=== PATIENT | male | born 1990 | race Caucasian/White ===

== ENCOUNTER 2017-02-26 15:05 | Emergency (ER) | payer OTHER ==
[~2017-02-26] VITALS: Ht 177.8 cm; Wt 55.8 kg
[2017-02-26 15:09] VITALS: BP 137/91
== END 2017-02-26 16:50 | disposition home or self-care (01) ==
LOC: ED 15:05
DX: J98.01 Acute bronchospasm (principal); F17.200 Nicotine dependence, unspecified, uncomplicated; F12.20 Cannabis dependence, uncomplicated
CPT/HCPCS: J7512; J7613; J7644

== ENCOUNTER 2018-04-26 10:27 | Emergency (ER) | payer OTHER ==
[~2018-04-26] VITALS: Ht 180.3 cm; Wt 62.6 kg
[2018-04-26 10:37] VITALS: BP 132/71; Ht 180.3 cm; Wt 62.6 kg
== END 2018-04-26 12:10 | disposition home or self-care (01) ==
LOC: ED 10:27
DX: S93.401A Sprain of unspecified ligament of right ankle, initial encounter (principal); W13.2XXA Fall from, out of or through roof, initial encounter; Y93.39 Activity, other involving climbing, rappelling and jumping off; Y92.008 Other place in unspecified non-institutional (private) residence as the place of occurrence of the external cause

== ENCOUNTER 2018-10-05 20:21 | Emergency (ER) | payer OTHER ==
[~2018-10-05] VITALS: Ht 180.3 cm; Wt 79.4 kg
[2018-10-05 20:33] VITALS: BP 156/99; Ht 180.3 cm; Wt 79.4 kg
== END 2018-10-05 22:39 | disposition left against medical advice (07) ==
LOC: ED 20:21
DX: Z53.21 Procedure and treatment not carried out due to patient leaving prior to being seen by health care provider (principal)

== ENCOUNTER 2018-10-27 09:59 | Emergency (ER) | payer OTHER ==
[~2018-10-27] VITALS: Ht 180.3 cm; Wt 65.8 kg
[2018-10-27 10:17] VITALS: BP 120/89; Ht 180.3 cm; Wt 65.8 kg
== END 2018-10-27 12:59 | disposition other institution (70) ==
LOC: ED 09:59
DX: S01.81XA Laceration without foreign body of other part of head, initial encounter (principal); S93.402A Sprain of unspecified ligament of left ankle, initial encounter; S00.212A Abrasion of left eyelid and periocular area, initial encounter; X58.XXXA Exposure to other specified factors, initial encounter; Y93.89 Activity, other specified; Y92.89 Other specified places as the place of occurrence of the external cause; Y99.8 Other external cause status
CPT/HCPCS: 90715

== ENCOUNTER 2018-10-27 09:59 | Emergency (ER) | payer OTHER | END 2018-10-27 12:59 | disposition other institution (70) | LOC: ED 09:59 | DX: Z02.89 Encounter for other administrative examinations (principal) ==

== ENCOUNTER 2019-12-05 01:04 | Emergency (ER) | payer SELFPAY ==
[~2019-12-05] VITALS: Ht 172.7 cm; Wt 79.4 kg
[2019-12-05 01:10] VITALS: BP 133/91; Ht 172.7 cm; Wt 79.4 kg
== END 2019-12-05 01:33 | disposition left against medical advice (07) ==
LOC: ED 01:04
DX: Z53.21 Procedure and treatment not carried out due to patient leaving prior to being seen by health care provider (principal)
CPT/HCPCS: G0480; Q0162